=== PATIENT | female | born 1985 | race Caucasian/White ===

== ENCOUNTER 2020-12-16 17:00 | Emergency (ER) | payer OTHER, SELFPAY ==
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
[2020-12-16 17:15] VITALS: BP 118/77; PULSE 98; RESP 16; TEMP 37.3; O2SAT 100
== END 2020-12-16 18:10 | disposition short-term general hospital (02) ==
PROVIDERS: Emergency Provider Nurse Practitioner; PCP Internal Medicine
DX: R10.31 Right lower quadrant pain (principal); E03.9 Hypothyroidism, unspecified; F41.9 Anxiety disorder, unspecified
CPT/HCPCS: 71100; 81003; 99213; G0463

== ENCOUNTER 2021-08-19 12:36 | Outpatient (CLI) | payer OTHER, SELFPAY ==
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
== END 2021-08-19 12:37 | disposition home or self-care (01) ==
LOC: ANHIMG 12:39
PROVIDERS: PCP Internal Medicine; Visit Provider Surgery Plastic and Reconstructive Surgery
DX: M95.8 Other specified acquired deformities of musculoskeletal system (principal)
CPT/HCPCS: 76705

== ENCOUNTER 2022-09-29 07:44 | Outpatient (CLI) | payer OTHER, SELFPAY ==
--- NOTE | ~2022-09-29 | DEXA_ITS ---
Bone Density Report Name: LEMUEL CURRAN Age: 37 Sex: Female Ethnicity: White Date of : 1985 Indication: postmenopausal; height loss; hysterectomy; Referring Provider: BENJY SPARKS Study: Bone densitometry was performed. Exam Date: September 29, 2022 Accession number: [id number] Bone Density: Region BMD T-score Z-score Classification AP Spine(L1-L4) 1.144 0.9 1.0 Normal Femoral Neck (Left) 0.873 0.2 0.4 Normal Total Hip (Left) 1.001 0.5 0.6 Normal Femoral Neck (Right) 0.880 0.3 0.5 Normal Total Hip (Right) 1.026 0.7 0.8 Normal Total Hip Mean 1.013 0.6 0.7 Normal World Health Organization criteria for BMD impression classify patients as: Normal (T-score at or above -1.0), Osteopenia (T-score between -1.0 and -2.5), or Osteoporosis (T-score at or below -2.5). 10-year Fracture Risk: FRAX not reported because: All T-scores for Spine Total, Hip Total, Femoral Neck at or above -1.0 Clinical Information Provided by Patient: Has used the following medications: Vitamin D Has the following medical conditions: Hysterectomy Patient maximum height was 68 Menopause Age: 31 Drinks caffeinated beverages Onset of menses at age 14 Number of children 2 Impression: The patient has normal bone mass. Discussion: BONE DENSITY IS ABOVE THE MINIMUM DESIRABLE LEVEL AT ALL SKELETAL SITES TESTED. This patient?s bone mineral density is above the minimum desirable level (T-score -1.0 or better) at all sites measured. The patient should follow a healthful lifestyle (good nutrition with adequate calcium and vitamin D, and appropriate weight-bearing exercise). Follow-Up: Consider repeating this study in 5 years or sooner if there is some new clinical indication. Reported by: [facility] on 09/29/2022 8:12:00 AM. Reviewed, dictated and finalized at location ALe [facility]
== END 2022-09-29 07:45 | disposition home or self-care (01) ==
PROVIDERS: PCP Internal Medicine; Visit Provider Advanced Practice Midwife
DX: Z78.0 Asymptomatic menopausal state (principal)
CPT/HCPCS: 77080

== ENCOUNTER 2023-03-20 13:16 | Emergency (ER) | payer OTHER, SELFPAY ==
[2023-03-20 13:30] VITALS: BP 122/93; PULSE 79; RESP 18; TEMP 36.3; O2SAT 98
--- NOTE | 2023-03-20 14:11 | ED.EAR ---
HPI - Ear Problem General Chief complaint: Ear Stated complaint: Ear pain/swollen lymph nodes Source: patient Mode of arrival: ambulatory Limitations: no limitations History of Present Illness HPI Narrative: Pt presents for evaluation for evaluation of right ear pain. Symptom onset today. Over the course of the last week she has noted preauricular and cervical lymphadenopathy. She has some sinus congestion, muffled hearing and postnasal drainage. Denies fever, chills, cough, sore throat, shortness of breath. No recent sick contacts to her knowledge. No additional complaints or concerns. Related Data Home Medications Medication Instructions Recorded Confirmed [place] 3 03/20/23 bupropion HCl 150 mg 24 hr tablet, mg PO 03/20/23 extended release cholecalciferol (vitamin D3) 25 03/20/23 mcg (1,000 unit) capsule levothyroxine 50 mcg tablet mcg 03/20/23 metoprolol succinate 100 mg mg PO 03/20/23 03/20/23 tablet,extended release 24 hr Allergies Allergy/AdvReac Type Severity Reaction Status Date / Time hydrocodone Allergy Mild Other Verified 09/01/21 09:28 Review of Systems Review of Systems: CONSTITUTIONAL: Denies fever, chills, or sweats. EYES: Denies visual changes, redness, or discharge. ENT: Reports right ear pain, muffled hearing, sinus congestion, and postnasal drainage. Denies sore throat. CARDIOVASCULAR: Denies chest pain, palpitations, or edema. RESPIRATORY: Denies cough or dyspnea. GASTROINTESTINAL: Denies abdominal pain, nausea, vomiting, or diarrhea. GENITOURINARY: Denies dysuria or hematuria. SKIN: Denies rash or itching. MUSCULOSKELETAL: Denies back pain, joint pain, or myalgia. NEUROLOGIC: Denies headache, numbness, dizziness, or weakness. PSYCHIATRIC: Denies anxiety or depression. [facility] Past Medical History Medical History No pertinent past medical history Surgical History Surgical History History of appendectomy History of cholecystectomy History of hysterectomy Family History Family History Mother Family history non-contributory Social History Social History Smoking status: Never smoker Alcohol intake: current Substance use: never Substance use type: does not use Gender identity (if verbalized by the patient): Female Spiritual care concerns: No Exam Narrative: GENERAL: Well-appearing, well-nourished, and in no acute distress. HEAD: Normocephalic, atraumatic. EYES: PERRLA and EOMI. ENT: Nares clear, no rhinorrhea or epistaxis. Mucous membranes moist. Oropharynx without tonsillar hypertrophy exudate or other lesions. There is thick white-yellow drainage behind right TM with bulging present. NECK: Supple. No adenopathy or masses. No carotid bruits or JVD CHEST: Clear to auscultation. No respiratory distress. No wheezes rales or rhonchi HEART: Regular rate and rhythm. No murmur heard. Normal peripheral pulses. ABDOMEN: Soft, nontender, nondistended, normal active bowel sounds. EXTREMITIES: Normal range of motion. No edema. SKIN: Warm, dry, no rash. NEURO: No focal deficits. Alert and oriented x3. PSYCH: Normal mood and affect. Course Course Emergency Course: This is a 38-year-old female who presented for evaluation of right-sided ear pain. She has evidence of otitis media on exam. Advised Sudafed, Flonase, Benadryl for symptom management. Will discharge with Augmentin. Follow up with primary provider. Go to the ER for worsening symptoms. Pt in agreement with plan of care. Level of Care: Express Care Visit Vital Signs Vital signs: Vital Signs Temperature 36.3 C L 03/20/23 13:30 Pulse Rate 79 03/20/23 13:30 Respiratory Rate 18 03/20/23 13:30 Blood Pressure 122/93 H 03/20/23 13:30 Pulse O
== END 2023-03-20 14:13 | disposition home or self-care (01) ==
PROVIDERS: Emergency Provider Nurse Practitioner; PCP Internal Medicine
DX: H66.91 Otitis media, unspecified, right ear (principal)
CPT/HCPCS: 99213; G0463

== ENCOUNTER 2023-09-16 15:15 | Outpatient (CLI) | payer OTHER, SELFPAY ==
--- NOTE | ~2023-09-16 | US_ITS ---
EXAMINATION: US soft tissue groin LT DATE: 09/16/2023 15:36 INDICATION: Left inguinal lymphadenopathy. TECHNIQUE: Multiple grayscale and Doppler ultrasound images of the left groin were obtained. COMPARISON: None FINDINGS: There are no pathologically enlarged lymph nodes. There is a 1.1 x 1.0 x 0.5 cm hyperechoic subcutaneous mass in the left groin. IMPRESSION: 1. 1.1 cm hyperechoic subcutaneous mass in the left groin, likely inflammation. 2. No left inguinal lymphadenopathy. Reviewed, dictated and finalized at location A.
== END 2023-09-16 15:16 ==
LOC: GOSHIMG 15:16
PROVIDERS: PCP Nurse Practitioner; Visit Provider Nurse Practitioner
DX: R59.0 Localized enlarged lymph nodes (principal)
CPT/HCPCS: 76882

== ENCOUNTER 2023-12-22 16:23 | Emergency (ER) | payer OTHER, SELFPAY ==
[2023-12-22 16:28] VITALS: BP 126/85; PULSE 82; RESP 16; TEMP 36.5; O2SAT 100
--- NOTE | 2023-12-22 17:16 | ED.FEMALEGU ---
HPI - Female Genitourinary General Chief complaint: Urogenital-Female Stated complaint: Bladder infection/kidney pain Time Seen by Provider: 12/22/23 17:10 Source: patient, RN notes reviewed and old records reviewed Mode of arrival: ambulatory Limitations: no limitations History of Present Illness HPI Narrative: 38 year old female who presents to [facility] care with complaints of suprapubic pain and pressure with radiation of pain to her right flank for the past 5 days. She states that she has noted some urinary frequency today. Patient reports no fevers chills or sweats, denies any nausea or vomiting.Patient does have history of previous UTI's. MD elicited complaint: UTI Pertinent past history: other (previous UTI's) Onset (ago): day(s) (5) Severity scale (1-10): 5 Quality of pain: aching and other (pressure) Vaginal discharge: none Vaginal bleeding: none Treatment prior to arrival: none Related Data Home Medications Medication Instructions Recorded Confirmed bupropion HCl 150 mg 24 hr tablet, 150 mg PO DAILY 03/20/23 12/22/23 extended release levothyroxine 50 mcg tablet 50 mcg PO DAILY 03/20/23 12/22/23 metoprolol succinate 100 mg 100 mg PO DAILY 03/20/23 12/22/23 tablet,extended release 24 hr Allergies Allergy/AdvReac Type Severity Reaction Status Date / Time hydrocodone Allergy Mild Other Verified 12/22/23 17:21 Review of Systems Review of Systems: CONSTITUTIONAL: Denies fever, chills, or sweats. CARDIOVASCULAR: Denies chest pain, palpitations, or edema. RESPIRATORY: Denies cough or dyspnea. GASTROINTESTINAL: Denies abdominal pain, nausea, vomiting, or diarrhea. GENITOURINARY: frequency, suprapubic pressure pain and right flank pain SKIN: Denies rash or itching. MUSCULOSKELETAL: Denies back pain or myalgia. Denies CVA tenderness NEUROLOGIC: Denies headache All systems reviewed & are unremarkable except as noted in HPI and below PMFSH Past Medical History Medical History Anxiety Endometriosis Hypothyroidism No pertinent past medical history Surgical History Surgical History History of appendectomy History of cholecystectomy History of hysterectomy Family History Family History Mother Family history non-contributory Social History Social History Smoking status: Never smoker Alcohol intake: current Substance use: never Substance use type: does not use Gender identity (if verbalized by the patient): Female Spiritual care concerns: No Comments At time of signature, agree with nursing past medical, surgical, social and family history. There is no relevant family history pertinent to the presenting complaint Exam Narrative: GENERAL: Well-appearing, well-nourished, and in no acute distress. HEAD: Normocephalic, atraumatic. NECK: Supple.no lymphadenopathy CHEST: Clear to auscultation. No respiratory distress.SAO2 100% on room air HEART: Regular rate and rhythm. No murmur heard. Normal peripheral pulses. ABDOMEN: Soft, suprapubic tender, nondistended, normal active bowel sounds. Right flank pain and suprapubic pressure with urinary frequency reported. EXTREMITIES: Normal range of motion. No edema. SKIN: Warm, dry, no rash. NEURO: No focal deficits. Alert and oriented x3. Course Course Emergency Course: Patient is aware of diagnosis, understands and agrees to treatment plan.? Anticipatory guidance given.? Patient agrees to follow-up as directed and is aware of reasons to seek care at the emergency department. Portions of this record may have been created with voice recognition software Level of Care: Express Care Visit Vital Signs Vital signs: Vital Signs Temperature 36.5 C 12/22/23 16:28 Pulse Rate 82 12/22/23 16:28 Respiratory Rate 16
[2023-12-22 17:34] LABS: EDUAAPPEAR Clear; EDUABILI Negative; EDUABLOOD Negative; EDUACOLOR1 Yellow; EDUAGLUCOSE Negative; EDUAKETONE Negative; EDUALEUKO Negative; EDUANITRATE Negative; EDUAPH 6.5; EDUAPROTEIN Negative; EDUAUROBILI 0.2
== END 2023-12-22 17:30 | disposition home or self-care (01) ==
PROVIDERS: Emergency Provider Registered Nurse; PCP Internal Medicine
DX: R10.30 Lower abdominal pain, unspecified (principal); R35.0 Frequency of micturition; F41.9 Anxiety disorder, unspecified; N80.9 Endometriosis, unspecified; E03.9 Hypothyroidism, unspecified
CPT/HCPCS: 81003; 87086; 99213; G0463

== ENCOUNTER 2023-12-31 19:13 | Emergency (ER) | payer OTHER, SELFPAY ==
[2023-12-31 19:18] VITALS: BP 138/87; PULSE 81; RESP 18; TEMP 36.8; O2SAT 100
[2023-12-31] MEDS: TETANUS,DIPHTHERIA,AC PERTUSSIS ADULT (0.5 ML) BOOSTRIX IM (20:38)
--- NOTE | 2023-12-31 20:57 | ED.WOUNDLAC ---
HPI - Wound/Laceration General Chief Complaint: Wound/Laceration Stated Complaint: Right thumb lac Time Seen by Provider: 12/31/23 19:34 Source: patient, RN notes reviewed and old records reviewed Mode of arrival: ambulatory Limitations: no limitations History of Present Illness HPI narrative: 38-year-old female to Express Care with her sister for complaint of wound to right thumb that occurred approximately 45 minutes prior to arrival. Patient states that she was using a potato slicer when she accidentally cut her thumb. Patient unaware of last tetanus. Patient arrives with hand wrapped in paper towels, patient anxious about loss of blood and feeling lightheaded. Patient voices concern over passing out. Patient placed on gurney in room 1 with head elevated and side rails up. Patient guided through breathing and reassured. Patient uncertain of last tetanus. Patient denies use of blood thinners, prior injury to thumb, numbness, tingling, decreased range of motion, pertinent medical history. respirations even and nonlabored. Patient able to speak in complete sentences without difficulty. Patient in no acute distress. Related Data Home Medications Medication Instructions Recorded Confirmed bupropion HCl 150 mg 24 hr tablet, 150 mg PO DAILY 03/20/23 12/22/23 extended release levothyroxine 50 mcg tablet 50 mcg PO DAILY 03/20/23 12/22/23 metoprolol succinate 100 mg 100 mg PO DAILY 03/20/23 12/22/23 tablet,extended release 24 hr Allergies Allergy/AdvReac Type Severity Reaction Status Date / Time hydrocodone Allergy Mild Other Verified 12/31/23 19:20 Review of Systems Review of Systems: All systems reviewed & are unremarkable except as noted in HPI and below Constitutional: Constitutional: Reports no additional constitutional complaints Eyes: Eyes: Reports no additional eye complaints ENT: Reports system reviewed and no additional complaints, except as documented Cardiovascular: Cardiovascular: Reports no additional cardiovascular complaints, Denies chest pain and Denies dyspnea Respiratory: Respiratory: Reports no additional respiratory complaints, Denies cough and Denies dyspnea Musculoskeletal: Musculoskeletal: Reports no additional musculoskeletal complaints Integumentary/Breasts: Skin/Breast: Reports as per HPI and Reports wounds (Avulsion of thumb, right hand, actively bleeding upon arrival. ) Neurologic: Reports system reviewed and no additional complaints, except as documented Psychiatric: Psychiatric: Reports no additional psychiatric complaints PMFSH Past Medical History Medical History Anxiety Endometriosis Hypothyroidism No pertinent past medical history Surgical History Surgical History History of appendectomy History of cholecystectomy History of hysterectomy Family History Family History Mother Family history non-contributory Social History Social History Smoking status: Never smoker Alcohol intake: current Substance use: never Substance use type: does not use Gender identity (if verbalized by the patient): Female Spiritual care concerns: No Comments At the time of my signature, I reviewed and agree with the nursing past medical, surgical, social, and family history. There is no relevant family history pertinent to the patient complaint. Exam Const: General: cooperative, healthy appearing, no acute distress, alert, in distress mild (from pain), anxious, well groomed and well nourished Nutritional Appearance: well nourished Orientation/consciousness: patient oriented x3 Limitations: no limitations HENMT: Head: normal to inspection Ears: external ears normal Face/Nose/Sinus: Normal external nose present, Normal nares prese
== END 2023-12-31 20:50 | disposition home or self-care (01) ==
PROVIDERS: Emergency Provider Nurse Practitioner Family; PCP Family Medicine
DX: S61.001A Unspecified open wound of right thumb without damage to nail, initial encounter (principal); W27.4XXA Contact with kitchen utensil, initial encounter; N80.9 Endometriosis, unspecified; E03.9 Hypothyroidism, unspecified; F41.9 Anxiety disorder, unspecified
CPT/HCPCS: 90471; 90715; 99213; G0463